=== PATIENT | male | born 1970 | race Caucasian/White ===

== ENCOUNTER 2022-10-24 08:35 | Emergency (ER) | payer MEDICAID ==
[~2022-10-24] VITALS: Ht 167.6 cm; Wt 97.0 kg
[2022-10-24 08:53] VITALS: BP 153/79
[2022-10-24 10:50] LABS: BASOPHILS % 0.5 % (0.0-2.0); HEMATOCRIT. 41.6 % (42.0-52.0); HEMOGLOBIN. 14.1 g/dL (14.0-18.0); LYMPHOCYTES % 15.1 % (20.0-50.0); MEAN CORPUSCULAR HEMOGLOBIN 31.3 pg (28.0-32.0); MEAN CORPUSCULAR VOLUME 92.5 fL (80.0-94.0); MEAN PLATELET VOLUME 8.8 fl (7.4-10.4); MONOCYTES % 12.4 % (2.0-8.0); PLATELET 182 x1000/uL (130-400); RED CELL DISTRIBUTION WIDTH 13.5 % (11.6-14.6)
[2022-10-24 10:59] LABS: CHLORIDE 106 mEq/L (98-107)
[2022-10-24 11:07] LABS: ETHANOL BLOOD < 10 mg/dL
[2022-10-24 12:51] LABS: CLARITY URINE CLEAR (CLEAR); COLOR URINE DARK YELLOW (YELLOW); KETONES URINE TRACE (NEGATIVE); LEUKOCYTE ESTERASE URINE NEGATIVE (NEGATIVE); NITRITE URINE NEGATIVE (NEGATIVE); OCCULT BLOOD URINE NEGATIVE (NEGATIVE); PROTEIN URINE TRACE (NEGATIVE)
[2022-10-24 13:05] LABS: *AMPHETAMINES SCREEN URINE NEGATIVE (NEGATIVE); *BARBITURATES SCREEN URINE NEGATIVE (NEGATIVE); *BENZODIAZEPINES SCREEN URINE NEGATIVE (NEGATIVE); *COCAINE SCREEN URINE NEGATIVE (NEGATIVE); CANNABINOID URINE SCREEN NEGATIVE (NEGATIVE); METHADONE URINE SCREEN NEGATIVE (NEGATIVE); OPIATES URINE SCREEN NEGATIVE (NEGATIVE); PHENCYCLIDINE URINE SCREEN NEGATIVE (NEGATIVE)
== END 2022-10-24 12:42 | disposition home or self-care (01) ==
LOC: ER 09:13
DX: D49.89 Neoplasm of unspecified behavior of other specified sites (principal); R03.0 Elevated blood-pressure reading, without diagnosis of hypertension
CPT/HCPCS: 36415; 71045; 74176; 80053; 80305; 80320; 81003; 84484; 85025; 99285; G0480

== ENCOUNTER 2023-01-19 05:26 | Emergency (ER) | payer MEDICAID ==
[~2023-01-19] VITALS: Ht 170.2 cm; Wt 72.6 kg
[2023-01-19 08:14] LABS: CHLORIDE 114 mEq/L (98-107)
[2023-01-19 08:33] LABS: HEMATOCRIT. 24.6 % (42.0-52.0); HEMOGLOBIN. 7.9 g/dL (14.0-18.0); MEAN CORPUSCULAR HEMOGLOBIN 31.5 pg (28.0-32.0); MEAN CORPUSCULAR VOLUME 98.6 fL (80.0-94.0); MEAN PLATELET VOLUME 9.6 fl (7.4-10.4); RED CELL DISTRIBUTION WIDTH 20.2 % (11.6-14.6)
[2023-01-19 09:26] LABS: INR 1.6; PROTHROMBIN TIME 16.3 sec (9.6-11.0)
[2023-01-19 09:57] LABS: PLATELET ESTIMATE MARKEDLY DECREASED
[2023-01-19 09:58] LABS: PLATELET 11 x1000/uL (130-400)
[2023-01-19] MEDS ORDERED: CEFI200S2 MT (13:35)
[2023-01-19 14:00] VITALS: BP 125/82; PULSE 98; RESP 21
[2023-01-19] MEDS ORDERED: CEFTRIAXONE 1GM PREMIX 50 ML IV NR (14:00)
== END 2023-01-19 14:27 | disposition home or self-care (01) ==
LOC: EDUNIT# 05:26 → ER 05:26
DX: J90 Pleural effusion, not elsewhere classified (principal); D69.6 Thrombocytopenia, unspecified; D72.829 Elevated white blood cell count, unspecified; D72.825 Bandemia
CPT/HCPCS: 36415; 71045; 80053; 82140; 85025; 85610; 96365; 99284; J0696; Z7610